=== PATIENT | female | born 1985 | race Caucasian/White ===

== ENCOUNTER → 2024-08-12 14:30 | Outpatient (REF) | payer OTHER, SELFPAY | LOC: HWRAD 14:30 | PROVIDERS: ATTENDING PHYSICIAN Nurse Practitioner | DX: R10.13 Epigastric pain (principal) | CPT/HCPCS: 74177; Q9967 ==

== ENCOUNTER → 2025-04-22 13:19 | Outpatient (REF) | payer OTHER, SELFPAY | LOC: RCS 13:19 | PROVIDERS: ATTENDING PHYSICIAN Nurse Practitioner | DX: R00.2 Palpitations (principal) | CPT/HCPCS: 93225; 93226 ==